=== PATIENT | female | born 1945 | race Caucasian/White ===

== ENCOUNTER 2019-07-03 16:07 | Inpatient (IN) ==
[2019-07-03] MEDS ORDERED: BUMETANIDE 1 MG/4 ML VIAL IV STA (16:33)
[2019-07-03] MEDS ORDERED: methylPREDNISolone SOD SUC 125 MG/2 ML VIAL IV STA (16:33)
[2019-07-03] MEDS ORDERED: ONDANSETRON 4 MG/2 ML VIAL IV STA (16:33)
[2019-07-03] MEDS ORDERED: ALBUTEROL 2.5 MG/3 ML NEB RESP TX SCH (17:00)
[2019-07-03 17:11] LABS: Allen Test Positive
[2019-07-03 17:26] LABS: Basophils # 0.1 10*3/uL (0.0-0.2); Eosinophils # 0.5 10*3/uL (0.0-0.87); Eosinophils % 3.6 % (0.00-10.9); Hematocrit 40.2 VOL% (35.7-47.0); Hemoglobin 12.4 GM/DL (12.0-16.0); Immature Granulocytes % 0.4 %; Immature Granulocytes Absolute 0.06 #; Lymphocytes # 2.8 10*3/uL (1.4-4.0); Lymphocytes % 20.4 % (21.3-54.2); Mean Corpuscular HGB Conc 30.8 GM/DL (32-36); Mean Corpuscular Volume 88.9 FL (87-102); Mean Platelet Volume 13.1 FL (9.6-12.0); Monocytes % 6.3 % (1.7-12.7); Neutrophils % 68.3 % (38.7-73.9); Platelet Count 200 T/CUMM (130-400); Red Blood Count 4.52 MC/CUMM (3.8-5.5); Red Cell Distribution Width 15.2 % (9.3-17.3); White Blood Count 13.9 T/CUMM (4-12)
[2019-07-03 17:38] LABS: PT Patient Result 10.5 SECS
[2019-07-03 17:44] LABS: Alanine Aminotransferase 16 U/L (13-56); Albumin 3.4 G/DL (3.4-5.0); Alkaline Phosphatase 75 U/L (45-117); Aspartate Amino Transferase 13 U/L (0-37); Bilirubin,Total < 0.39 MG/DL (0.2-1.0); Blood Urea Nitrogen 16 MG/DL (7-18); Calcium 9.3 MG/DL (8.5-10.1); Glucose 154 MG/DL (74-106); Osmolality,Calculated 278.7 MOS/KG (273-304); Total Protein 7.7 G/DL (6.4-8.3)
[2019-07-03] MEDS ORDERED: DOXYCYCLINE HYCLATE INJ 100 MG in SODIUM CHLORIDE 0.9% 100 ML IV STA (17:44)
[2019-07-03 18:50] LABS: Apearance,Urine CLEAR (Clear); Bacteria,Urine Occasional /HPF (Few); Bilirubin,Urine Negative (Negative); Blood, Urine Negative (Negative); Glucose,Urine (UA) Negative (Negative); Ketones,Urine Negative (Negative); Nitrite,Urine Negative (Negative); Protein,Urine Negative; RBC,Urine 1 /HPF (0-4); Squamous Epithelial Cell,Urine Occasional /HPF (0-10); Urine Color Straw (Yellow); Urine Specific Gravity 1.006 (1.001-1.035); Urine Urobilinogen < 2.0 EU/DL (0.2-1.0); WBC,Urine 1 /HPF (0-6)
[2019-07-03] MEDS ORDERED: ONDANSETRON 4 MG/2 ML VIAL IV PRN (19:23)
[2019-07-03] MEDS ORDERED: DEXTROSE 50% 25 GM/50 ML VIAL IV PRN ×2 (19:23→19:26)
[2019-07-03] MEDS ORDERED: GLUCAGON 1 MG VIAL IM PRN ×2 (19:23→19:26)
[2019-07-03] MEDS: MULTIVITAMIN (CENTRUM) TABLET PO SCH (23:23)
[2019-07-03] MEDS: fentaNYL 25 MCG/HR PATCH TRANSDERM SCH (23:23)
[2019-07-03] MEDS: ENOXAPARIN 40 MG/0.4 ML SYRINGE SUBCUT SCH (23:24)
[2019-07-03] MEDS: CARVEDILOL 3.125 MG TABLET PO SCH (23:24)
[2019-07-03] MEDS: buPROPion 75 MG TABLET PO SCH (23:24)
[2019-07-03] MEDS: ATORVASTATIN 10 MG TABLET PO SCH (23:24)
[2019-07-03] MEDS: methylPREDNISolone SOD SUC 40 MG/1 ML VIAL IV SCH (23:37)
[2019-07-03] MEDS: CLORAZEPATE 3.75 MG TABLET PO PRN (23:37)
[2019-07-03] MEDS: INSULIN REGULAR 100 UNIT/ML SUBCUT SCH (23:44)
[2019-07-04] MEDS: ALBUTEROL/IPRATROPIUM 3 ML NEB RESP TX SCH ×4 (02:02→19:58)
[2019-07-04] MEDS ORDERED: ZALEPLON 5 MG CAPSULE PO ONE (02:36)
[2019-07-04 05:12] LABS: Basophils % 0.4 % (0.0-0.8); Hematocrit 36.9 VOL% (35.7-47.0); Hemoglobin 11.8 GM/DL (12.0-16.0); Immature Granulocytes % 0.5 %; Immature Granulocytes Absolute 0.05 #; Lymphocytes # 0.8 10*3/uL (1.4-4.0); Lymphocytes % 7.7 % (21.3-54.2); Mean Corpuscular Volume 87.4 FL (87-102); Mean Platelet Volume 13.1 FL (9.6-12.0); Monocytes % 0.9 % (1.7-12.7); Neutrophils % 90.5 % (38.7-73.9); Platelet Count 203 T/CUMM (130-400); Red Blood Count 4.22 MC/CUMM (3.8-5.5); Red Cell Distribution Width 15.1 % (9.3-17.3); White Blood Count 10.4 T/CUMM (4-12)
[2019-07-04 05:49] LABS: Albumin 3.3 G/DL (3.4-5.0); Bilirubin,Total 0.4 MG/DL (0.2-1.0); Calcium 10.2 MG/DL (8.5-10.1); Osmolality,Calculated 279.7 MOS/KG (273-304); Total Protein 8.2 G/DL (6.4-8.3)
[2019-07-04] MEDS: INSULIN REGULAR 100 UNIT/ML SUBCUT SCH ×4 (06:22→23:56)
[2019-07-04] MEDS: DOXYCYCLINE HYCLATE INJ 100 MG in SODIUM CHLORIDE 0.9% 100 ML IV SCH ×2 (06:37→17:59)
[2019-07-04] MEDS: ASPIRIN EC 81 MG TABLET PO SCH (08:51)
[2019-07-04] MEDS: FLUTICASONE 50 MCG NASAL SPRAY 16 GM BOTTLE BOTH NARES SCH (08:51)
[2019-07-04] MEDS: PANTOPRAZOLE 40 MG TABLET PO SCH (08:51)
[2019-07-04] MEDS: DORZOLAMIDE 2% OPH SOLN 10 ML BOTTLE RIGHT EYE SCH ×2 (08:51→21:53)
[2019-07-04] MEDS: MONTELUKAST 10 MG TABLET PO SCH (08:51)
[2019-07-04] MEDS: methylPREDNISolone SOD SUC 40 MG/1 ML VIAL IV SCH ×3 (08:51→23:57)
[2019-07-04] MEDS: buPROPion 75 MG TABLET PO SCH ×2 (08:51→21:51)
[2019-07-04] MEDS: CARVEDILOL 3.125 MG TABLET PO SCH ×2 (08:52→21:51)
[2019-07-04] MEDS: MULTIVITAMIN (CENTRUM) TABLET PO SCH ×2 (08:52→21:52)
[2019-07-04] MEDS: THEOPHYLLINE ER 300 MG TABLET PO SCH ×2 (08:52→17:18)
[2019-07-04] MEDS: ATORVASTATIN 10 MG TABLET PO SCH (21:51)
[2019-07-04] MEDS: BIMATOPROST 0.01% OPH SOLN 2.5 ML BOTTLE RIGHT EYE SCH (21:52)
[2019-07-04] MEDS: ENOXAPARIN 40 MG/0.4 ML SYRINGE SUBCUT SCH (21:57)
[2019-07-04] MEDS: CLORAZEPATE 3.75 MG TABLET PO PRN (22:07)
[2019-07-05] MEDS: ALBUTEROL/IPRATROPIUM 3 ML NEB RESP TX SCH ×4 (00:13→19:32)
[2019-07-05] MEDS: INSULIN REGULAR 100 UNIT/ML SUBCUT SCH ×4 (06:20→21:29)
[2019-07-05] MEDS: DOXYCYCLINE HYCLATE INJ 100 MG in SODIUM CHLORIDE 0.9% 100 ML IV SCH ×2 (06:21→18:34)
[2019-07-05] MEDS: methylPREDNISolone SOD SUC 40 MG/1 ML VIAL IV SCH ×3 (07:23→23:00)
[2019-07-05 08:18] LABS: Basophils % 0.1 % (0.0-0.8); Hemoglobin 11.9 GM/DL (12.0-16.0); Immature Granulocytes % 0.7 %; Immature Granulocytes Absolute 0.13 #; Lymphocytes % 5.6 % (21.3-54.2); Mean Corpuscular HGB Conc 32.2 GM/DL (32-36); Mean Corpuscular Volume 88.5 FL (87-102); Mean Platelet Volume 13.6 FL (9.6-12.0); Neutrophils % 91.6 % (38.7-73.9); Platelet Count 197 T/CUMM (130-400); Red Blood Count 4.18 MC/CUMM (3.8-5.5); Red Cell Distribution Width 15.2 % (9.3-17.3)
[2019-07-05 08:22] LABS: Calcium 10.1 MG/DL (8.5-10.1); Osmolality,Calculated 284.7 MOS/KG (273-304)
[2019-07-05] MEDS ORDERED: BISACODYL 5 MG TABLET PO PRN (08:51)
[2019-07-05] MEDS ORDERED: LACTULOSE 20 GM/30 ML UDCUP PO PRN (08:52)
[2019-07-05] MEDS: PANTOPRAZOLE 40 MG TABLET PO SCH (09:03)
[2019-07-05] MEDS: MONTELUKAST 10 MG TABLET PO SCH (09:03)
[2019-07-05] MEDS: MULTIVITAMIN (CENTRUM) TABLET PO SCH ×2 (09:03→21:28)
[2019-07-05] MEDS: THEOPHYLLINE ER 300 MG TABLET PO SCH ×2 (09:03→17:36)
[2019-07-05] MEDS: CARVEDILOL 3.125 MG TABLET PO SCH ×2 (09:04→21:28)
[2019-07-05] MEDS: ASPIRIN EC 81 MG TABLET PO SCH (09:04)
[2019-07-05] MEDS: buPROPion 75 MG TABLET PO SCH ×2 (09:04→21:28)
[2019-07-05] MEDS: DORZOLAMIDE 2% OPH SOLN 10 ML BOTTLE RIGHT EYE SCH ×2 (09:04→21:37)
[2019-07-05] MEDS: FLUTICASONE 50 MCG NASAL SPRAY 16 GM BOTTLE BOTH NARES SCH (09:04)
[2019-07-05] MEDS ORDERED: SIMETHICONE CHEW 125 MG TABLET PO PRN (10:46)
[2019-07-05 11:05] LABS: Lymphocytes 8 % (20-55); Segmented Neutrophils 92 % (50-85); Total Cells Counted 100
[2019-07-05 11:06] LABS: Hypochromasia Slight; Macrocytosis Slight; Microcytosis Slight; Platelet Estimate Normal; Schistocytes Slight
[2019-07-05] MEDS: ATORVASTATIN 10 MG TABLET PO SCH (21:28)
[2019-07-05] MEDS: ENOXAPARIN 40 MG/0.4 ML SYRINGE SUBCUT SCH (21:28)
[2019-07-05] MEDS: CLORAZEPATE 3.75 MG TABLET PO PRN (21:28)
[2019-07-05] MEDS: BIMATOPROST 0.01% OPH SOLN 2.5 ML BOTTLE RIGHT EYE SCH (21:38)
[2019-07-06] MEDS: ALBUTEROL/IPRATROPIUM 3 ML NEB RESP TX SCH ×4 (01:55→19:40)
[2019-07-06 05:35] LABS: Basophils % 0.1 % (0.0-0.8); Hematocrit 35.6 VOL% (35.7-47.0); Hemoglobin 11.2 GM/DL (12.0-16.0); Immature Granulocytes % 0.6 %; Lymphocytes # 0.9 10*3/uL (1.4-4.0); Lymphocytes % 5.4 % (21.3-54.2); Mean Corpuscular HGB Conc 31.5 GM/DL (32-36); Mean Corpuscular Volume 88.8 FL (87-102); Mean Platelet Volume 14.2 FL (9.6-12.0); Monocytes % 2.3 % (1.7-12.7); Neutrophils % 91.6 % (38.7-73.9); Platelet Count 180 T/CUMM (130-400); Red Blood Count 4.01 MC/CUMM (3.8-5.5); White Blood Count 17.3 T/CUMM (4-12)
[2019-07-06 05:59] LABS: Osmolality,Calculated 286.4 MOS/KG (273-304)
[2019-07-06 06:41] LABS: Band Neutrophils 1 % (0-10); Lymphocytes 6 % (20-55); Segmented Neutrophils 93 % (50-85); Total Cells Counted 100
[2019-07-06 06:42] LABS: Anisocytosis 1+; Platelet Estimate Adequate
[2019-07-06] MEDS: DOXYCYCLINE HYCLATE INJ 100 MG in SODIUM CHLORIDE 0.9% 100 ML IV SCH ×2 (06:45→18:38)
[2019-07-06] MEDS: methylPREDNISolone SOD SUC 40 MG/1 ML VIAL IV SCH ×3 (06:46→23:50)
[2019-07-06] MEDS: MONTELUKAST 10 MG TABLET PO SCH (08:32)
[2019-07-06] MEDS: PANTOPRAZOLE 40 MG TABLET PO SCH (08:32)
[2019-07-06] MEDS: CARVEDILOL 3.125 MG TABLET PO SCH ×2 (08:32→21:47)
[2019-07-06] MEDS: buPROPion 75 MG TABLET PO SCH ×2 (08:32→21:48)
[2019-07-06] MEDS: ASPIRIN EC 81 MG TABLET PO SCH (08:32)
[2019-07-06] MEDS: THEOPHYLLINE ER 300 MG TABLET PO SCH ×2 (08:32→16:35)
[2019-07-06] MEDS: INSULIN REGULAR 100 UNIT/ML SUBCUT SCH ×4 (08:32→21:47)
[2019-07-06] MEDS: MULTIVITAMIN (CENTRUM) TABLET PO SCH ×2 (08:32→21:47)
[2019-07-06] MEDS: DORZOLAMIDE 2% OPH SOLN 10 ML BOTTLE RIGHT EYE SCH ×2 (08:33→21:50)
[2019-07-06] MEDS: FLUTICASONE 50 MCG NASAL SPRAY 16 GM BOTTLE BOTH NARES SCH (08:33)
[2019-07-06] MEDS: fentaNYL 25 MCG/HR PATCH TRANSDERM SCH (18:38)
[2019-07-06] MEDS: ATORVASTATIN 10 MG TABLET PO SCH (21:47)
[2019-07-06] MEDS: CLORAZEPATE 3.75 MG TABLET PO PRN (21:47)
[2019-07-06] MEDS: BIMATOPROST 0.01% OPH SOLN 2.5 ML BOTTLE RIGHT EYE SCH (21:50)
[2019-07-06] MEDS: ENOXAPARIN 40 MG/0.4 ML SYRINGE SUBCUT SCH (21:51)
[2019-07-07] MEDS: ALBUTEROL/IPRATROPIUM 3 ML NEB RESP TX SCH ×4 (00:05→20:08)
[2019-07-07] MEDS: methylPREDNISolone SOD SUC 40 MG/1 ML VIAL IV SCH ×3 (06:29→23:14)
[2019-07-07] MEDS: DOXYCYCLINE HYCLATE INJ 100 MG in SODIUM CHLORIDE 0.9% 100 ML IV SCH ×2 (06:32→19:24)
[2019-07-07] MEDS: INSULIN REGULAR 100 UNIT/ML SUBCUT SCH ×4 (10:07→21:43)
[2019-07-07] MEDS: PANTOPRAZOLE 40 MG TABLET PO SCH (10:16)
[2019-07-07] MEDS: ASPIRIN EC 81 MG TABLET PO SCH (10:16)
[2019-07-07] MEDS: THEOPHYLLINE ER 300 MG TABLET PO SCH ×2 (10:17→18:19)
[2019-07-07] MEDS: buPROPion 75 MG TABLET PO SCH ×2 (10:17→21:42)
[2019-07-07] MEDS: MONTELUKAST 10 MG TABLET PO SCH (10:17)
[2019-07-07] MEDS: CARVEDILOL 3.125 MG TABLET PO SCH ×2 (10:17→21:42)
[2019-07-07] MEDS: MULTIVITAMIN (CENTRUM) TABLET PO SCH ×2 (10:17→21:42)
[2019-07-07] MEDS: FLUTICASONE 50 MCG NASAL SPRAY 16 GM BOTTLE BOTH NARES SCH (10:18)
[2019-07-07] MEDS: DORZOLAMIDE 2% OPH SOLN 10 ML BOTTLE RIGHT EYE SCH ×2 (10:19→21:41)
[2019-07-07] MEDS ORDERED: MELATONIN 3 MG TABLET PO PRN (20:22)
[2019-07-07] MEDS: TRIAMCINOLONE 0.025% CREAM 15 GM TUBE TOP SCH (21:40)
[2019-07-07] MEDS: BIMATOPROST 0.01% OPH SOLN 2.5 ML BOTTLE RIGHT EYE SCH (21:41)
[2019-07-07] MEDS: ATORVASTATIN 10 MG TABLET PO SCH (21:42)
[2019-07-07] MEDS: CLORAZEPATE 3.75 MG TABLET PO PRN (21:42)
[2019-07-07] MEDS: ENOXAPARIN 40 MG/0.4 ML SYRINGE SUBCUT SCH (21:42)
[2019-07-08] MEDS: ALBUTEROL/IPRATROPIUM 3 ML NEB RESP TX SCH ×4 (01:57→19:34)
[2019-07-08] MEDS ORDERED: ALBUTEROL 2.5 MG/3 ML NEB RESP TX PRN (06:23)
[2019-07-08] MEDS: DOXYCYCLINE HYCLATE INJ 100 MG in SODIUM CHLORIDE 0.9% 100 ML IV SCH ×2 (07:25→19:20)
[2019-07-08] MEDS: methylPREDNISolone SOD SUC 40 MG/1 ML VIAL IV SCH ×2 (07:25→16:56)
[2019-07-08] MEDS: INSULIN REGULAR 100 UNIT/ML SUBCUT SCH ×4 (08:27→22:04)
[2019-07-08] MEDS: FLUTICASONE 50 MCG NASAL SPRAY 16 GM BOTTLE BOTH NARES SCH (08:29)
[2019-07-08] MEDS: buPROPion 75 MG TABLET PO SCH ×2 (08:30→22:04)
[2019-07-08] MEDS: THEOPHYLLINE ER 300 MG TABLET PO SCH ×2 (08:30→16:57)
[2019-07-08] MEDS: CARVEDILOL 3.125 MG TABLET PO SCH ×2 (08:30→22:04)
[2019-07-08] MEDS: PANTOPRAZOLE 40 MG TABLET PO SCH (08:30)
[2019-07-08] MEDS: MULTIVITAMIN (CENTRUM) TABLET PO SCH ×2 (08:30→22:03)
[2019-07-08] MEDS: ASPIRIN EC 81 MG TABLET PO SCH (08:30)
[2019-07-08] MEDS: MONTELUKAST 10 MG TABLET PO SCH (08:30)
[2019-07-08] MEDS: DORZOLAMIDE 2% OPH SOLN 10 ML BOTTLE RIGHT EYE SCH ×2 (08:34→22:03)
[2019-07-08] MEDS: TRIAMCINOLONE 0.025% CREAM 15 GM TUBE TOP SCH ×3 (12:17→22:04)
[2019-07-08] MEDS: POLYETHYLENE GLYCOL POWDER 17 GM PACK PO SCH (16:58)
[2019-07-08] MEDS: BIMATOPROST 0.01% OPH SOLN 2.5 ML BOTTLE RIGHT EYE SCH (22:03)
[2019-07-08] MEDS: ATORVASTATIN 10 MG TABLET PO SCH (22:04)
[2019-07-08] MEDS: ENOXAPARIN 40 MG/0.4 ML SYRINGE SUBCUT SCH (22:04)
[2019-07-09] MEDS: methylPREDNISolone SOD SUC 40 MG/1 ML VIAL IV SCH ×4 (00:58→23:05)
[2019-07-09] MEDS: ALBUTEROL/IPRATROPIUM 3 ML NEB RESP TX SCH ×4 (01:54→19:00)
[2019-07-09 04:51] LABS: Basophils % 0.1 % (0.0-0.8); Hematocrit 38.6 VOL% (35.7-47.0); Hemoglobin 12.2 GM/DL (12.0-16.0); Immature Granulocytes % 0.4 %; Immature Granulocytes Absolute 0.04 #; Lymphocytes # 0.7 10*3/uL (1.4-4.0); Lymphocytes % 7.6 % (21.3-54.2); Mean Corpuscular HGB Conc 31.6 GM/DL (32-36); Mean Corpuscular Volume 87.7 FL (87-102); Mean Platelet Volume 13.7 FL (9.6-12.0); Monocytes % 3.3 % (1.7-12.7); Neutrophils % 88.6 % (38.7-73.9); Platelet Count 196 T/CUMM (130-400); Red Cell Distribution Width 14.8 % (9.3-17.3); White Blood Count 9.1 T/CUMM (4-12)
[2019-07-09 05:11] LABS: Calcium 9.6 MG/DL (8.5-10.1); Osmolality,Calculated 276.1 MOS/KG (273-304)
[2019-07-09] MEDS: DOXYCYCLINE HYCLATE INJ 100 MG in SODIUM CHLORIDE 0.9% 100 ML IV SCH ×2 (08:37→17:39)
[2019-07-09] MEDS: INSULIN REGULAR 100 UNIT/ML SUBCUT SCH ×4 (08:38→21:37)
[2019-07-09] MEDS: DORZOLAMIDE 2% OPH SOLN 10 ML BOTTLE RIGHT EYE SCH ×2 (08:38→21:41)
[2019-07-09] MEDS: POLYETHYLENE GLYCOL POWDER 17 GM PACK PO SCH (08:38)
[2019-07-09] MEDS: MONTELUKAST 10 MG TABLET PO SCH (08:39)
[2019-07-09] MEDS: MULTIVITAMIN (CENTRUM) TABLET PO SCH ×2 (08:39→21:43)
[2019-07-09] MEDS: CARVEDILOL 3.125 MG TABLET PO SCH ×2 (08:39→21:43)
[2019-07-09] MEDS: ASPIRIN EC 81 MG TABLET PO SCH (08:39)
[2019-07-09] MEDS: THEOPHYLLINE ER 300 MG TABLET PO SCH ×2 (08:39→17:39)
[2019-07-09] MEDS: buPROPion 75 MG TABLET PO SCH ×2 (08:39→21:43)
[2019-07-09] MEDS: FLUTICASONE 50 MCG NASAL SPRAY 16 GM BOTTLE BOTH NARES SCH (08:39)
[2019-07-09] MEDS: PANTOPRAZOLE 40 MG TABLET PO SCH (08:39)
[2019-07-09] MEDS: TRIAMCINOLONE 0.025% CREAM 15 GM TUBE TOP SCH ×4 (08:40→22:34)
[2019-07-09] MEDS ORDERED: MAGNESIUM HYDROXIDE SUSP 30 ML UDCUP PO PRN (10:32)
[2019-07-09] MEDS: MAGNESIUM HYDROXIDE SUSP 30 ML UDCUP PO SCH (12:00)
[2019-07-09] MEDS: NICOTINE 14 MG/24 HR PATCH TRANSDERM SCH (12:00)
[2019-07-09] MEDS ORDERED: FUROSEMIDE 20 MG/2 ML VIAL IV ONE (14:06)
[2019-07-09] MEDS: ENOXAPARIN 40 MG/0.4 ML SYRINGE SUBCUT SCH (21:38)
[2019-07-09] MEDS: BUDESONIDE/FORMOTEROL 160-4.5 INHALER 6 GM INH SCH (21:40)
[2019-07-09] MEDS: BIMATOPROST 0.01% OPH SOLN 2.5 ML BOTTLE RIGHT EYE SCH (21:41)
[2019-07-09] MEDS: CLORAZEPATE 3.75 MG TABLET PO PRN (21:43)
[2019-07-09] MEDS: ATORVASTATIN 10 MG TABLET PO SCH (21:43)
[2019-07-09] MEDS: fentaNYL 25 MCG/HR PATCH TRANSDERM SCH (22:33)
[2019-07-10] MEDS: ALBUTEROL/IPRATROPIUM 3 ML NEB RESP TX SCH ×4 (02:25→19:00)
[2019-07-10] MEDS: DOXYCYCLINE HYCLATE INJ 100 MG in SODIUM CHLORIDE 0.9% 100 ML IV SCH ×3 (06:21→17:31)
[2019-07-10] MEDS: methylPREDNISolone SOD SUC 40 MG/1 ML VIAL IV SCH ×3 (08:00→23:16)
[2019-07-10] MEDS: INSULIN REGULAR 100 UNIT/ML SUBCUT SCH ×4 (08:30→21:56)
[2019-07-10] MEDS: ACETAMINOPHEN 325 MG TABLET PO PRN (08:56)
[2019-07-10] MEDS: BUDESONIDE/FORMOTEROL 160-4.5 INHALER 6 GM INH SCH ×2 (09:25→22:31)
[2019-07-10] MEDS: MAGNESIUM HYDROXIDE SUSP 30 ML UDCUP PO SCH (09:25)
[2019-07-10] MEDS: NICOTINE 14 MG/24 HR PATCH TRANSDERM SCH (09:25)
[2019-07-10] MEDS: PANTOPRAZOLE 40 MG TABLET PO SCH (09:26)
[2019-07-10] MEDS: ASPIRIN EC 81 MG TABLET PO SCH (09:26)
[2019-07-10] MEDS: DORZOLAMIDE 2% OPH SOLN 10 ML BOTTLE RIGHT EYE SCH ×2 (09:26→22:31)
[2019-07-10] MEDS: MONTELUKAST 10 MG TABLET PO SCH (09:26)
[2019-07-10] MEDS: FLUTICASONE 50 MCG NASAL SPRAY 16 GM BOTTLE BOTH NARES SCH (09:26)
[2019-07-10] MEDS: THEOPHYLLINE ER 300 MG TABLET PO SCH ×2 (09:26→17:15)
[2019-07-10] MEDS: MULTIVITAMIN (CENTRUM) TABLET PO SCH ×2 (09:26→21:51)
[2019-07-10] MEDS: POLYETHYLENE GLYCOL POWDER 17 GM PACK PO SCH (09:26)
[2019-07-10] MEDS: TRIAMCINOLONE 0.025% CREAM 15 GM TUBE TOP SCH ×4 (09:27→22:31)
[2019-07-10] MEDS: CARVEDILOL 3.125 MG TABLET PO SCH ×2 (09:27→21:52)
[2019-07-10] MEDS: buPROPion 75 MG TABLET PO SCH ×2 (09:27→22:31)
[2019-07-10] MEDS ORDERED: BISACODYL 10 MG SUPP RECTAL ONE (09:57)
[2019-07-10] MEDS: CLORAZEPATE 3.75 MG TABLET PO PRN (21:51)
[2019-07-10] MEDS: ATORVASTATIN 10 MG TABLET PO SCH (21:51)
[2019-07-10] MEDS: ENOXAPARIN 40 MG/0.4 ML SYRINGE SUBCUT SCH (21:55)
[2019-07-10] MEDS: BIMATOPROST 0.01% OPH SOLN 2.5 ML BOTTLE RIGHT EYE SCH (22:31)
[2019-07-11] MEDS: ALBUTEROL/IPRATROPIUM 3 ML NEB RESP TX SCH ×2 (01:29→07:45)
[2019-07-11] MEDS: ACETAMINOPHEN 325 MG TABLET PO PRN (03:41)
[2019-07-11] MEDS: DOXYCYCLINE HYCLATE INJ 100 MG in SODIUM CHLORIDE 0.9% 100 ML IV SCH (06:47)
[2019-07-11] MEDS: methylPREDNISolone SOD SUC 40 MG/1 ML VIAL IV SCH (06:47)
[2019-07-11 09:00] VITALS: BP 128/63
[2019-07-11] MEDS: POLYETHYLENE GLYCOL POWDER 17 GM PACK PO SCH (09:11)
[2019-07-11] MEDS: MAGNESIUM HYDROXIDE SUSP 30 ML UDCUP PO SCH (09:11)
[2019-07-11] MEDS: CARVEDILOL 3.125 MG TABLET PO SCH (09:12)
[2019-07-11] MEDS: buPROPion 75 MG TABLET PO SCH (09:12)
[2019-07-11] MEDS: PANTOPRAZOLE 40 MG TABLET PO SCH (09:12)
[2019-07-11] MEDS: ASPIRIN EC 81 MG TABLET PO SCH (09:12)
[2019-07-11] MEDS: MULTIVITAMIN (CENTRUM) TABLET PO SCH (09:12)
[2019-07-11] MEDS: INSULIN REGULAR 100 UNIT/ML SUBCUT SCH (09:12)
[2019-07-11] MEDS: FLUTICASONE 50 MCG NASAL SPRAY 16 GM BOTTLE BOTH NARES SCH (09:12)
[2019-07-11] MEDS: MONTELUKAST 10 MG TABLET PO SCH (09:12)
[2019-07-11] MEDS: THEOPHYLLINE ER 300 MG TABLET PO SCH (09:12)
[2019-07-11] MEDS: TRIAMCINOLONE 0.025% CREAM 15 GM TUBE TOP SCH (09:13)
[2019-07-11] MEDS: NICOTINE 14 MG/24 HR PATCH TRANSDERM SCH (09:13)
[2019-07-11] MEDS: BUDESONIDE/FORMOTEROL 160-4.5 INHALER 6 GM INH SCH (09:14)
[2019-07-11] MEDS: DORZOLAMIDE 2% OPH SOLN 10 ML BOTTLE RIGHT EYE SCH (09:14)
== END 2019-07-11 10:32 | disposition hospice, home (50) | DRG 178 ==
LOC: EDUNIT# → EDBD → N.ED 16:07 → N.EDINP 19:23 → SUATTDRO 19:23 → N.3E 21:29
PROVIDERS: ADMIT Internal Medicine; ATTEND Hospitalist

== ENCOUNTER 2019-08-12 14:11 | Observation (INO) ==
[2019-08-12 15:28] LABS: Basophils # 0.1 10*3/uL (0.0-0.2); Basophils % 0.9 % (0.0-0.8); Eosinophils # 0.1 10*3/uL (0.0-0.87); Eosinophils % 0.8 % (0.00-10.9); Hematocrit 38.6 VOL% (35.7-47.0); Hemoglobin 12.2 GM/DL (12.0-16.0); Immature Granulocytes % 0.6 %; Immature Granulocytes Absolute 0.09 #; Lymphocytes # 2.1 10*3/uL (1.4-4.0); Lymphocytes % 14.1 % (21.3-54.2); Mean Corpuscular HGB Conc 31.6 GM/DL (32-36); Mean Corpuscular Volume 88.9 FL (87-102); Mean Platelet Volume 12.9 FL (9.6-12.0); Monocytes % 4.3 % (1.7-12.7); Neutrophils % 79.3 % (38.7-73.9); Platelet Count 244 T/CUMM (130-400); Red Blood Count 4.34 MC/CUMM (3.8-5.5); Red Cell Distribution Width 15.1 % (9.3-17.3); White Blood Count 14.9 T/CUMM (4-12)
[2019-08-12 15:46] LABS: Albumin 3.3 G/DL (3.4-5.0); Bilirubin,Total 0.5 MG/DL (0.2-1.0); Osmolality,Calculated 275.8 MOS/KG (273-304)
[2019-08-12] MEDS ORDERED: ACETAMINOPHEN 325 MG TABLET PO PRN (17:08)
[2019-08-12] MEDS ORDERED: ONDANSETRON 4 MG/2 ML VIAL IV PRN (17:08)
[2019-08-12] MEDS ORDERED: ALBUTEROL 2.5 MG/3 ML NEB RESP TX PRN (17:08)
[2019-08-12] MEDS ORDERED: CLORAZEPATE 3.75 MG TABLET PO PRN (17:14)
[2019-08-12] MEDS ORDERED: TEMAZEPAM 15 MG CAPSULE PO PRN (17:14)
[2019-08-12] MEDS ORDERED: GLUCAGON 1 MG VIAL IM PRN (17:15)
[2019-08-12] MEDS ORDERED: DEXTROSE 10% 25 GM/250 ML BAG IV PRN (17:15)
[2019-08-12] MEDS ORDERED: fentaNYL 25 MCG/HR PATCH TRANSDERM SCH (17:30)
[2019-08-12] MEDS: ALBUTEROL/IPRATROPIUM 3 ML NEB RESP TX SCH (19:22)
[2019-08-12 20:24] LABS: Amorphous Crystals,Urine Occasional /HPF (Few); Apearance,Urine Slightly Hazy (Clear); Bilirubin,Urine Negative (Negative); Blood, Urine Negative (Negative); Glucose,Urine (UA) Negative (Negative); Ketones,Urine 20 mg/dL (Negative); Mucus,Urine Occasional /LPF (Occasional); Nitrite,Urine Negative (Negative); Protein,Urine Negative; RBC,Urine 1 /HPF (0-4); Squamous Epithelial Cell,Urine Occasional /HPF (0-10); Urine Color Yellow (Yellow); Urine Specific Gravity 1.012 (1.001-1.035); Urine Urobilinogen < 2.0 EU/DL (0.2-1.0); WBC,Urine 2 /HPF (0-6)
[2019-08-12] MEDS: buPROPion 75 MG TABLET PO SCH (21:35)
[2019-08-12] MEDS: MONTELUKAST 10 MG TABLET PO SCH (21:35)
[2019-08-12] MEDS: ATORVASTATIN 10 MG TABLET PO SCH (21:35)
[2019-08-12] MEDS: DORZOLAMIDE 2% OPH SOLN 10 ML BOTTLE BOTH EYES SCH (21:35)
[2019-08-12] MEDS: carvediloL 3.125 MG TABLET PO SCH (21:35)
[2019-08-12] MEDS: BIMATOPROST 0.01% OPH SOLN 2.5 ML BOTTLE RIGHT EYE SCH (21:35)
[2019-08-12] MEDS: GABAPENTIN 300 MG CAPSULE PO SCH (21:35)
[2019-08-12] MEDS: INSULIN REGULAR 100 UNIT/ML SUBCUT SCH (21:35)
[2019-08-13] MEDS: ALBUTEROL/IPRATROPIUM 3 ML NEB RESP TX SCH ×4 (02:02→19:25)
[2019-08-13 06:41] LABS: Basophils # 0.2 10*3/uL (0.0-0.2); Eosinophils # 0.2 10*3/uL (0.0-0.87); Eosinophils % 1.5 % (0.00-10.9); Hematocrit 35.9 VOL% (35.7-47.0); Hemoglobin 11.3 GM/DL (12.0-16.0); Immature Granulocytes % 0.7 %; Lymphocytes # 2.8 10*3/uL (1.4-4.0); Mean Corpuscular HGB Conc 31.5 GM/DL (32-36); Mean Corpuscular Volume 89.3 FL (87-102); Mean Platelet Volume 12.7 FL (9.6-12.0); Monocytes % 7.9 % (1.7-12.7); Neutrophils % 69.9 % (38.7-73.9); Platelet Count 204 T/CUMM (130-400); Red Blood Count 4.02 MC/CUMM (3.8-5.5); Red Cell Distribution Width 15.2 % (9.3-17.3); White Blood Count 14.5 T/CUMM (4-12)
[2019-08-13 07:03] LABS: Alanine Aminotransferase 12 U/L (13-56); Albumin 2.9 G/DL (3.4-5.0); Alkaline Phosphatase 73 U/L (45-117); Aspartate Amino Transferase 13 U/L (0-37); Bilirubin,Total < 0.39 MG/DL (0.2-1.0); Blood Urea Nitrogen 13 MG/DL (7-18); Calcium 9.6 MG/DL (8.5-10.1); Estimated Glom Filtration Rate 79 ML/MIN; Glucose 108 MG/DL (74-106); Osmolality,Calculated 275.7 MOS/KG (273-304); Total Protein 7.1 G/DL (6.4-8.3)
[2019-08-13] MEDS: INSULIN REGULAR 100 UNIT/ML SUBCUT SCH ×4 (08:33→22:19)
[2019-08-13] MEDS: buPROPion 75 MG TABLET PO SCH ×2 (09:32→20:51)
[2019-08-13] MEDS: GABAPENTIN 300 MG CAPSULE PO SCH ×2 (09:33→20:51)
[2019-08-13] MEDS: DORZOLAMIDE 2% OPH SOLN 10 ML BOTTLE BOTH EYES SCH ×2 (09:33→20:52)
[2019-08-13] MEDS: THEOPHYLLINE ER 300 MG TABLET PO SCH ×2 (09:33→17:28)
[2019-08-13] MEDS: ASPIRIN EC 81 MG TABLET PO SCH (09:33)
[2019-08-13] MEDS: CETIRIZINE 10 MG TABLET PO SCH (09:33)
[2019-08-13] MEDS: carvediloL 3.125 MG TABLET PO SCH ×2 (09:33→20:52)
[2019-08-13] MEDS: PANTOPRAZOLE 40 MG TABLET PO SCH (09:33)
[2019-08-13] MEDS: MONTELUKAST 10 MG TABLET PO SCH (20:51)
[2019-08-13] MEDS: BIMATOPROST 0.01% OPH SOLN 2.5 ML BOTTLE RIGHT EYE SCH (20:52)
[2019-08-13] MEDS: ATORVASTATIN 10 MG TABLET PO SCH (20:52)
[2019-08-14] MEDS: ALBUTEROL/IPRATROPIUM 3 ML NEB RESP TX SCH ×4 (02:04→20:00)
[2019-08-14 05:44] LABS: Basophils # 0.2 10*3/uL (0.0-0.2); Basophils % 1.1 % (0.0-0.8); Eosinophils # 0.2 10*3/uL (0.0-0.87); Eosinophils % 1.5 % (0.00-10.9); Hematocrit 35.5 VOL% (35.7-47.0); Hemoglobin 11.2 GM/DL (12.0-16.0); Immature Granulocytes % 0.6 %; Immature Granulocytes Absolute 0.08 #; Lymphocytes % 21.3 % (21.3-54.2); Mean Corpuscular HGB Conc 31.5 GM/DL (32-36); Mean Corpuscular Volume 89.2 FL (87-102); Mean Platelet Volume 13.2 FL (9.6-12.0); Neutrophils % 67.5 % (38.7-73.9); Platelet Count 207 T/CUMM (130-400); Red Blood Count 3.98 MC/CUMM (3.8-5.5); Red Cell Distribution Width 15.5 % (9.3-17.3); White Blood Count 14.1 T/CUMM (4-12)
[2019-08-14 06:06] LABS: Calcium 9.4 MG/DL (8.5-10.1); Osmolality,Calculated 272.8 MOS/KG (273-304)
[2019-08-14] MEDS: INSULIN REGULAR 100 UNIT/ML SUBCUT SCH ×4 (07:42→21:57)
[2019-08-14] MEDS ORDERED: fentaNYL 25 MCG/HR PATCH TRANSDERM SCH (09:00)
[2019-08-14] MEDS: THEOPHYLLINE ER 300 MG TABLET PO SCH ×2 (10:41→18:25)
[2019-08-14] MEDS: ASPIRIN EC 81 MG TABLET PO SCH (10:41)
[2019-08-14] MEDS: GABAPENTIN 300 MG CAPSULE PO SCH ×2 (10:41→20:16)
[2019-08-14] MEDS: DORZOLAMIDE 2% OPH SOLN 10 ML BOTTLE BOTH EYES SCH ×2 (10:42→20:17)
[2019-08-14] MEDS: buPROPion 75 MG TABLET PO SCH ×2 (10:42→20:15)
[2019-08-14] MEDS: CETIRIZINE 10 MG TABLET PO SCH (10:42)
[2019-08-14] MEDS: carvediloL 3.125 MG TABLET PO SCH ×2 (10:42→20:16)
[2019-08-14] MEDS: PANTOPRAZOLE 40 MG TABLET PO SCH (10:42)
[2019-08-14] MEDS: MONTELUKAST 10 MG TABLET PO SCH (20:16)
[2019-08-14] MEDS: ATORVASTATIN 10 MG TABLET PO SCH (20:16)
[2019-08-14] MEDS: BIMATOPROST 0.01% OPH SOLN 2.5 ML BOTTLE RIGHT EYE SCH (20:16)
[2019-08-15] MEDS: ALBUTEROL/IPRATROPIUM 3 ML NEB RESP TX SCH ×2 (02:21→07:08)
[2019-08-15 06:06] LABS: Basophils # 0.2 10*3/uL (0.0-0.2); Basophils % 1.3 % (0.0-0.8); Eosinophils # 0.3 10*3/uL (0.0-0.87); Eosinophils % 2.2 % (0.00-10.9); Hematocrit 36.7 VOL% (35.7-47.0); Hemoglobin 11.6 GM/DL (12.0-16.0); Immature Granulocytes % 0.6 %; Immature Granulocytes Absolute 0.08 #; Lymphocytes # 2.9 10*3/uL (1.4-4.0); Lymphocytes % 20.6 % (21.3-54.2); Mean Corpuscular HGB Conc 31.6 GM/DL (32-36); Mean Corpuscular Volume 89.7 FL (87-102); Mean Platelet Volume 13.4 FL (9.6-12.0); Monocytes % 6.9 % (1.7-12.7); Neutrophils % 68.4 % (38.7-73.9); Platelet Count 213 T/CUMM (130-400); Red Blood Count 4.09 MC/CUMM (3.8-5.5); Red Cell Distribution Width 15.4 % (9.3-17.3)
[2019-08-15 06:29] LABS: Calcium 9.2 MG/DL (8.5-10.1)
[2019-08-15 07:36] VITALS: BP 133/68
[2019-08-15] MEDS: INSULIN REGULAR 100 UNIT/ML SUBCUT SCH (08:13)
[2019-08-15] MEDS: CETIRIZINE 10 MG TABLET PO SCH (08:55)
[2019-08-15] MEDS: buPROPion 75 MG TABLET PO SCH (08:55)
[2019-08-15] MEDS: ASPIRIN EC 81 MG TABLET PO SCH (08:55)
[2019-08-15] MEDS: GABAPENTIN 300 MG CAPSULE PO SCH (08:55)
[2019-08-15] MEDS: carvediloL 3.125 MG TABLET PO SCH (08:55)
[2019-08-15] MEDS: THEOPHYLLINE ER 300 MG TABLET PO SCH (08:55)
[2019-08-15] MEDS: PANTOPRAZOLE 40 MG TABLET PO SCH (08:55)
[2019-08-15] MEDS: DORZOLAMIDE 2% OPH SOLN 10 ML BOTTLE BOTH EYES SCH (08:56)
[2019-08-15] MEDS ORDERED: CLINDAMYCIN 15 MG/ML 100 ML/BOTTLE PO SCH (09:00)
[2019-08-15] MEDS ORDERED: CEFDINIR 25 MG/ML 100 ML/BOTTLE PO SCH (09:00)
== END 2019-08-15 11:10 | disposition hospice, home (50) ==
LOC: MERGE 14:11 → N.ED 14:11 → N.EDINP 17:08 → INTOOBSV 17:08 → N.2E 17:26
PROVIDERS: ADMIT Internal Medicine; ATTEND Internal Medicine